=== PATIENT | female | born 1950 | race Caucasian/White ===

== ENCOUNTER 2016-04-09 11:40 | Day surgery (SDC) | payer MEDICARE, OTHER ==
[2016-04-09] MEDS ORDERED: LACTATED RINGERS 1,000 ML IV ONE (14:58)
[2016-04-09] MEDS ORDERED: MIDAZOLAM 2 MG/2 ML VIAL IVP ONE ×2 (15:30)
[2016-04-09] MEDS ORDERED: fentaNYL 250 MCG/5 ML VIAL IVP ONE (15:30)
[2016-04-09] MEDS ORDERED: fentaNYL 100 MCG/2 ML VIAL IVP ONE (15:30)
== END 2016-04-09 11:41 | disposition home or self-care (01) ==
PROC: 0DJD8ZZ Inspection of Lower Intestinal Tract, Via Natural or Artificial Opening Endoscopic (ICD-10-PCS; principal; 2016-04-09 13:15)
DX: Z12.11 Encounter for screening for malignant neoplasm of colon (principal); Z79.82 Long term (current) use of aspirin; I10 Essential (primary) hypertension; Z79.52 Long term (current) use of systemic steroids; Z82.49 Family history of ischemic heart disease and other diseases of the circulatory system; Z80.3 Family history of malignant neoplasm of breast
CPT/HCPCS: G0121; J7120

== ENCOUNTER 2023-02-21 23:29 | Outpatient (CLI) | payer MEDICARE, OTHER | END 2023-02-21 23:59 | disposition short-term general hospital (02) | LOC: EMS 23:29 | DX: R10.30 Lower abdominal pain, unspecified (principal); K62.5 Hemorrhage of anus and rectum; R11.10 Vomiting, unspecified | CPT/HCPCS: A0425; A0429 ==